=== PATIENT | female | born 1990 | race Caucasian/White ===

== ENCOUNTER 2017-09-30 20:53 | Emergency (ER) | payer BC ==
[2017-09-30 22:14] VITALS: BP 110/63
--- NOTE | 2017-10-01 00:30 | EDM.PDOC ---
ED HPI GENERAL MEDICAL PROBLEM - General Chief Complaint: Abdominal Pain Stated Complaint: 6 WEEKS PREG AND ABD PAIN [id number] Time Seen by Provider: 09/30/17 23:00 Source of Information: Reports: Patient History Limitations: Reports: No Limitations - History of Present Illness INITIAL COMMENTS - FREE TEXT/NARRATIVE: c/o RLQ pain today. No urinary complaints, previous appendectomy. Estimates 6 weeks pg with LMP 08/20. No fever, chills or nausea. No cramping sensation , no spotting. 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 ED EXAM, RENAL/ - Physical Exam Exam: See Below Exam Limited By: No Limitations General Appearance: Alert, Anxious, Mild Distress Eye Exam: Bilateral Eye: EOMI Ears: Normal External Exam Nose: Normal Inspection Throat/Mouth: Normal Inspection Head: Atraumatic, Normocephalic Neck: Normal Inspection, Supple, Non-Tender Respiratory/Chest: No Respiratory Distress, Lungs Clear Cardiovascular: Normal Peripheral Pulses, Regular Rate, Rhythm GI/Abdominal: Normal Bowel Sounds, Soft, Tender (RLQ) Back Exam: Normal Inspection Extremities: Normal Inspection, Normal Range of Motion Neurological: Alert, Oriented Psychiatric: Normal Affect Course - Vital Signs Last Recorded V/S: Last Vital Signs Temp 98.6 F 09/30/17 22:13 Pulse 92 12/12/17 22:13 Resp 16 09/30/17 22:13 BP 110/63 09/30/17 22:13 Pulse Ox 100 09/30/17 22:13 - Orders/Labs/Meds Labs: Laboratory Tests 09/30/17 09/30/17 09/30/17 Range/Units 22:18 22:18 22:30 WBC 7.4 (5.0-10.0) 10^3/uL RBC 3.79 L (4.2-5.4) 10^6/uL Hgb 11.3 L D (12.0-16.0) g/dL Hct 34.7 L (37.0-47.0) % MCV 91.6 D (80-100) fL MCH 29.8 (27.0-34.0) pg MCHC 32.6 L (33.0-35.0) g/dL Plt Count 256 (150-450) 10^3/uL Neut % (Auto) 46.0 (42.2-75.2) % Lymph % (Auto) 40.6 (20.5-50.1) % [place] % (Auto) 12.6 H (2-8) % Eos % (Auto) 0.4 L (1.0-3.0) % Baso % (Auto) 0.4 (0.0-1.0) % HCG, Quant > 1371 H (0-25) mIU/ml Beta HCG, Quant 12879 mIU/ml Urine Color Yellow (YELLOW) Urine Appearance Clear (CLEAR) Urine pH 7.0 (5.0-9.0) Ur Specific [place] 1.025 (1.005-1.030) Urine Protein Negative (NEGATIVE) Urine Glucose (UA) Negative (NEGATIVE) Urine Ketones Negative (NEGATIVE) Urine Occult Blood Negative (NEGATIVE) Urine Nitrite Negative (NEGATIVE) Urine Bilirubin Negative (NEGATIVE) Urine Urobilinogen 1.0 (0.2-1.0) mg/dL Ur Leukocyte Esterase Negative (NEGATIVE) Urine RBC 0-5 /HPF Urine WBC 0-5 (0-5/HPF) /HPF Ur Epithelial Cells Few /HPF Urine Bacteria Few (0-FEW/HPF) /HPF - Radiology Interpretation Free Text/Narrative:: US: intrauterine pg 6 weeks one day Departure - Departure Time of Disposition: 01:02 Disposition: Home, Self-Care 01 Condition: Good Clinical Impression: First trimester , Right lower quadrant abdominal pain - Discharge Information Instructions: First Trimester of , [id number] Referrals: Larry Blum MD [Primary Care Provider] - Forms: ED Department Discharge Additional Instructions: rest increase fluids no intercourse for 24 hours follow up with primary provider tylenol for discomfort
== END 2017-10-01 01:10 | disposition home or self-care (01) ==
LOC: DL.ED 20:53
DX: O99.89 Other specified diseases and conditions complicating pregnancy, childbirth and the puerperium (principal); R10.31 Right lower quadrant pain; Z3A.01 Less than 8 weeks gestation of pregnancy; Z90.49 Acquired absence of other specified parts of digestive tract
CPT/HCPCS: 36415; 76817; 81001; 84702; 85025; 99284

== ENCOUNTER 2019-01-12 22:43 | Emergency (ER) | payer BC ==
--- NOTE | 2019-01-12 23:04 | EDM.PDOC ---
ED HPI GENERAL MEDICAL PROBLEM - General Chief Complaint: Burn Stated Complaint: BURNT HAND Time Seen by Provider: 01/12/19 23:02 Source of Information: Reports: Patient, RN, RN Notes Reviewed History Limitations: Reports: No Limitations - History of Present Illness INITIAL COMMENTS - FREE TEXT/NARRATIVE: Pt presents to the ER with c/o burn to the top of the right hand. She states she was cooking and swiped her hand across the top of the flat top stove. Patient states she has tried aloe vera and linocaine over the counter without help. She states it is very painful. 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: Other Medication(s) Right Middle Finger-Middle Pain Score (Numeric/FACES): 8 - Related Data Allergies Allergy/AdvReac Type Severity Reaction Status Date / Time No Known Allergies Allergy Verified 04/25/18 16:51 Home Meds: Home Meds Acetaminophen [Tylenol Extra Strength] 325 mg PO Q6H PRN 07/12/15 [History] Sertraline HCl 25 mg PO DAILY 01/12/19 [History] busPIRone [Buspar] 15 mg PO DAILY 01/12/19 [History] Past Medical History - Past Health History Medical/Surgical History: Denies Medical/Surgical History HEENT History: Reports: None Cardiovascular History: Reports: Other (See Below) Other Cardiovascular History: preeclampsia Respiratory History: Reports: Asthma Gastrointestinal History: Reports: None Genitourinary History: Reports: None 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: First baby born at 29 weeks gestation due to patient having severe preeclampsia Musculoskeletal History: Reports: None Neurological History: Reports: None Psychiatric History: Reports: Anxiety, Depression Endocrine/Metabolic History: Reports: None Hematologic History: Reports: None Immunologic History: Reports: None Oncologic (Cancer) History: Reports: None Dermatologic History: Reports: None - Infectious Disease History Infectious Disease History: Reports: None - Past Surgical History Head Surgeries/Procedures: Reports: None GI Surgical History: Reports: Appendectomy Social & Family History - Family History Family Medical History: Noncontributory - Caffeine Use Caffeine Use: Reports: Soda ED ROS GENERAL - Review of Systems Review Of Systems: ROS reveals no pertinent complaints other than HPI. ED EXAM, BURN/SMOKE INHALATION - Physical Exam Exam: See Below Exam Limited By: No Limitations General Appearance: Alert, WD/WN, No Apparent Distress Eye Exam: Bilateral Eye: EOMI, Normal Inspection Ears (Abbreviated): Normal External Exam, Hearing Grossly Normal Nose: Left Anterior: Normal Inspection, Left Posterior: Normal Inspection, Right Anterior: Normal Inspection, Right Posterior: Normal Inspection Mouth/Throat: No Symptoms Reported Head: No Symptoms Neck: No Symptoms Respiratory: No Respiratory Distress, Lungs Clear, Normal Breath Sounds, No Accessory Muscle Use, Chest Non-Tender Cardiovascular: Normal Peripheral Pulses, Regular Rate, Rhythm, No Edema, No Gallop, No JVD, No Murmur, No Rub Peripheral Pulses: 2+: Radial (L), Radial (R) GI/Abdominal: Normal Bowel Sounds, Soft, Non-Tender (Female) Exam: Deferred Rectal Exam: Deferred Back Exam: Normal Inspection, Full Range of Motion Extremities: Normal Inspection, Normal Range of Motion, Non-Tender, No Pedal Edema, Normal Capillary Refill Neurological: Alert, Oriented, CN II-XII Intact, Normal Cognition, Normal Gait, Normal Reflexes, No Motor/Sensory Deficits Psychiatric: Normal Affect, Normal Mood Skin Exam: Warm, Dry, Other (erythematous burn to the dorsal aspect of the right hand, above the 4th and 5th fingers, extending down onto the 4th and 5th fingers. Erythematous with white center, no blistering at this time. ) Lymphatic: No Adenopathy Course - Vital Signs Last Recorded V/S: Last Vital Signs Temp 96.6 F 01/12/19 23:06 Pulse 71 01/12/19 23:06 Resp 16 01/12/19 23:06 BP 119/68 01/12/19 23:06 Pulse Ox 99 01/12/19 23:06 - Orders/Labs/Meds Meds: Medications Discontinued Medications Generic Name Dose Route Start Last Admin Trade Name Freq PRN Reason Stop Dose Admin Silver Sulfadiazine 1 gm 01/12/19 23:08 01/12/19 23:20 Silvadene 1% Cream 50 Gm TOP 01/12/19 23:09 1 applic ONETIME ONE Administration - Re-Assessments/Exams Free Text/Narrative Re-Assessment/Exam: 01/12/19 23:40 silvadene applied to the affected area and covered with Telfa and Kerlix by nurse. Departure - Departure Time of Disposition: 23:32 Disposition: Home, Self-Care 01 Condition: Good Clinical Impression: Burn of hand including fingers Qualifiers: Encounter type: initial encounter Laterality: right Burn degree: partial thickness (2nd degree) Qualified Code(s): T23.201A - Burn of second degree of right hand, unspecified site, initial encounter - Discharge Information *PRESCRIPTION DRUG MONITORING PROGRAM REVIEWED*: No *COPY OF PRESCRIPTION DRUG MONITORING REPORT IN PATIENT GWENDOLYN: No Instructions: Burn Care, Adult, [id number], Second-Degree Burn, Adult Forms: ED Department Discharge Additional Instructions: Continue to use Silvadene on the area until scabbing over Wrap and keep covered while open and draining May use Tylenol and/or Ibuprofen as directed for pain
[2019-01-12 23:08] VITALS: BP 119/68
[2019-01-12] MEDS ORDERED: Silver Sulfadiazine 1% Crm 50 GM Tube TOP ONE (23:08)
== END 2019-01-12 23:38 | disposition home or self-care (01) ==
LOC: DL.ED 22:43
DX: T23.231A Burn of second degree of multiple right fingers (nail), not including thumb, initial encounter (principal); T23.202A Burn of second degree of left hand, unspecified site, initial encounter
CPT/HCPCS: 16020; 99283; A9270

== ENCOUNTER 2021-09-13 02:44 | Emergency (ER) | payer BC, OTHER ==
[2021-09-13] MEDS ORDERED: Benzonatate 100 MG Cap PO ONE (03:00)
[2021-09-13] MEDS ORDERED: predniSONE 20 MG Tab PO ONE (03:00)
[2021-09-13 03:04] VITALS: BP 153/80; PULSE 95
--- NOTE | 2021-09-13 03:10 | EDM.PDOC ---
ED HPI GENERAL MEDICAL PROBLEM - General Chief Complaint: Respiratory Problem Stated Complaint: FEELS LIKE THROAT IS CLOSING Time Seen by Provider: 09/13/21 03:05 Source of Information: Reports: Patient, RN History Limitations: Reports: No Limitations - History of Present Illness INITIAL COMMENTS - FREE TEXT/NARRATIVE: ED with c/o cough, has had past 3 days worse tonight, woke with feeling tightness in chest. No hx asthma. COVID in June. Throat sore. , sinus drainage. Chills no fever. - Related Data Allergies Allergy/AdvReac Type Severity Reaction Status Date / Time No Known Allergies Allergy Verified 04/27/20 14:54 Home Meds: Home Meds Acetaminophen [Tylenol Extra Strength] 2 tab PO Q6H PRN 07/12/15 [History] Sertraline HCl 25 mg PO BEDTIME 01/12/19 [History] busPIRone [Buspar] 15 mg PO BEDTIME 01/12/19 [History] Naproxen [Naprosyn] 500 mg PO Q12HR #20 tab 04/27/20 [Rx] Past Medical History - Past Health History Medical/Surgical History: Denies Medical/Surgical History HEENT History: Reports: None Cardiovascular History: Reports: Other (See Below) Other Cardiovascular History: HTN only with , h/o increased cholesterol Respiratory History: Reports: Asthma Other Respiratory History: asthma in the past Gastrointestinal History: Reports: Cholelithiasis Genitourinary History: Reports: None 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: Musculoskeletal History: Reports: Fracture Other Musculoskeletal History: hx fx foot as a child Neurological History: Reports: None Psychiatric History: Reports: Anxiety, Depression Endocrine/Metabolic History: Reports: None Hematologic History: Reports: None Immunologic History: Reports: None Oncologic (Cancer) History: Reports: None Dermatologic History: Reports: None - Infectious Disease History Infectious Disease History: Reports: Chicken Pox - Past Surgical History Head Surgeries/Procedures: Reports: None HEENT Surgical History: Reports: None Cardiovascular Surgical History: Reports: None Respiratory Surgical History: Reports: None GI Surgical History: Reports: Appendectomy, Cholecystectomy, Hernia, Abdominal Female Surgical History: Reports: Section, Tubal Ligation Endocrine Surgical History: Reports: None Neurological Surgical History: Reports: None Musculoskeletal Surgical History: Reports: None Oncologic Surgical History: Reports: None Dermatological Surgical History: Reports: None Social & Family History - Family History Family Medical History: No Pertinent Family History - Caffeine Use Caffeine Use: Reports: Soda ED ROS GENERAL - Review of Systems Review Of Systems: Comprehensive ROS is negative, except as noted in HPI. ED EXAM, GENERAL - Physical Exam Exam: See Below Exam Limited By: No Limitations General Appearance: Alert, Mild Distress Eye Exam: Bilateral Eye: EOMI Ears: Normal External Exam, Hearing Grossly Normal Nose: Normal Inspection Throat/Mouth: Normal Inspection Head: Atraumatic, Normocephalic Respiratory/Chest: No Respiratory Distress, Lungs Clear, Normal Breath Sounds, Other (frequent dry cough) Cardiovascular: Normal Peripheral Pulses, Regular Rate, Rhythm GI/Abdominal: Normal Bowel Sounds, Soft Extremities: Normal Inspection, Normal Range of Motion Neurological: Alert, Oriented, Normal Cognition Psychiatric: Normal Affect, Normal Mood Skin Exam: Warm, Dry, Intact, Normal Color Course - Vital Signs Last Recorded V/S: Last Vital Signs Temp 97.9 F 09/13/21 03:01 Pulse 95 09/13/21 03:01 Resp 20 09/13/21 03:01 BP 153/80 H 09/13/21 03:01 Pulse Ox 97 09/13/21 03:01 - Orders/Labs/Meds Orders: Active Orders 24 hr Category Date Time Status CULTURE STREP A CONFIRMATION [] Stat Lab 09/13/21 02:55 Results STREP SCRN A RAPID W CULT CONF [] Stat Lab 09/13/21 02:55 Results Labs: Laboratory Tests 09/13/21 09/13/21 09/13/21 Range/Units 02:55 03:00 03:00 WBC 7.8 (5.0-10.0) 10^3/uL RBC 3.84 L (4.2-5.4) 10^6/uL Hgb 11.8 L (12.0-16.0) g/dL Hct 35.8 L (37.0-47.0) % MCV 93.2 (80-100) fL MCH 30.7 (27.0-34.0) pg MCHC 33.0 (33.0-35.0) g/dL Plt Count 275 (150-450) 10^3/uL Neut % (Auto) 45.4 (42.2-75.2) % Lymph % (Auto) 38.4 (20.5-50.1) % [place] % (Auto) 14.9 H (2-8) % Eos % (Auto) 0.9 L (1.0-3.0) % Baso % (Auto) 0.4 (0.0-1.0) % PT 9.6 (9.0-12.0) SEC INR 1.0 (0.9-1.2) D-Dimer, Quantitative 206 (0-400) ng/mL Sodium (136-145) mmol/L Potassium (3.5-5.1) mmol/L Chloride (98-107) mmol/L Carbon Dioxide (21-32) mmol/L Anion Gap (7-13) mEq/L BUN (7-18) mg/dL Creatinine (0.55-1.02) mg/dL Est Cr Clr Drug Dosing mL/min Estimated GFR (MDRD) BUN/Creatinine Ratio (No establ ref range) Glucose (70-99) mg/dL Calcium (8.5-10.1) mg/dL Total Bilirubin (0.2-1.0) mg/dL AST (15-37) U/L ALT (14-59) U/L Alkaline Phosphatase (46-116) U/L Total Protein (6.4-8.2) g/dL Albumin (3.4-5.0) g/dL Globulin Albumin/Globulin Ratio SARS-CoV-2 RNA (RUBEN) Negative (NEGATIVE) 09/13/21 Range/Units 03:00 WBC (5.0-10.0) 10^3/uL RBC (4.2-5.4) 10^6/uL Hgb (12.0-16.0) g/dL Hct (37.0-47.0) % MCV (80-100) fL MCH (27.0-34.0) pg MCHC (33.0-35.0) g/dL Plt Count (150-450) 10^3/uL Neut % (Auto) (42.2-75.2) % Lymph % (Auto) (20.5-50.1) % [place] % (Auto) (2-8) % Eos % (Auto) (1.0-3.0) % Baso % (Auto) (0.0-1.0) % PT (9.0-12.0) SEC INR (0.9-1.2) D-Dimer, Quantitative (0-400) ng/mL Sodium 142 (136-145) mmol/L Potassium 3.6 (3.5-5.1) mmol/L Chloride 106 (98-107) mmol/L Carbon Dioxide 31 (21-32) mmol/L Anion Gap 8.6 (7-13) mEq/L BUN 18 (7-18) mg/dL Creatinine 0.77 (0.55-1.02) mg/dL Est Cr Clr Drug Dosing 100.01 mL/min Estimated GFR (MDRD) > 60 BUN/Creatinine Ratio 23.4 (No establ ref range) Glucose 102 H (70-99) mg/dL Calcium 9.0 (8.5-10.1) mg/dL Total Bilirubin 0.5 (0.2-1.0) mg/dL AST 69 H (15-37) U/L ALT 159 H (14-59) U/L Alkaline Phosphatase 175 H (46-116) U/L Total Protein 7.7 (6.4-8.2) g/dL Albumin 3.4 (3.4-5.0) g/dL Globulin 4.3 Albumin/Globulin Ratio 0.8 SARS-CoV-2 RNA (RUBEN) (NEGATIVE) Meds: Medications Discontinued Medications Generic Name Dose Route Start Last Admin Trade Name Freq PRN Reason Stop Dose Admin Benzonatate 200 mg 09/13/21 03:00 09/13/21 03:08 Benzonatate 100 Mg Cap PO 09/13/21 03:01 200 mg ONETIME ONE Administration Prednisone 40 mg 09/13/21 03:00 09/13/21 03:07 Prednisone 20 Mg Tab PO 09/13/21 03:01 40 mg ONETIME ONE Administration Departure - Departure Time of Disposition: 04:09 Disposition: Home, Self-Care 01 Condition: Good Clinical Impression: URI, acute, Cough - Discharge Information *PRESCRIPTION DRUG MONITORING PROGRAM REVIEWED*: No *COPY OF PRESCRIPTION DRUG MONITORING REPORT IN PATIENT GWENDOLYN: No Instructions: Viral Respiratory Infection, [id number] Forms: ED Department Discharge Additional Instructions: increase fluids tessalon 200mg every 8 hours as needed for cough prednisone clinic follow up taper Friday if not improving humidification albuterol inhaler 2 puffs every 4 hours as needed Sepsis Event Note (ED) - Evaluation Sepsis Screening Result: No Definite Risk - Focused Exam Vital Signs: Vital Signs Temp Pulse Resp BP Pulse Ox 09/13/21 03:01 97.9 F 95 20 153/80 H 97 - My Orders Last 24 Hours: My Active Orders 09/13/21 02:55 CULTURE STREP A CONFIRMATION [RM] Stat STREP SCRN A RAPID W CULT CONF [RM] Stat - Assessment/Plan Last 24 Hours: My Active Orders 09/13/21 02:55 CULTURE STREP A CONFIRMATION [] Stat STREP SCRN A RAPID W CULT CONF [] Stat
[2021-09-13 03:37] LABS: ANION GAP 8.6 mEq/L (7-13); CHLORIDE,CL 106 mmol/L (98-107); SODIUM,NA 142 mmol/L (136-145)
[2021-09-13] MEDS ORDERED: predniSONE 20 MG Tab ONE (04:22)
[2021-09-13] MEDS ORDERED: Benzonatate 100 MG Cap ONE (04:22)
[2021-09-13] MEDS ORDERED: Albuterol 6.7 GM Inhaler INH ONE (04:22)
== END 2021-09-13 04:39 | disposition home or self-care (01) ==
LOC: DL.ED 02:44
DX: J06.9 Acute upper respiratory infection, unspecified (principal); I10 Essential (primary) hypertension; Z20.822 Contact with and (suspected) exposure to COVID-19
CPT/HCPCS: 36415; 80053; 85025; 85379; 85610; 87081; 87430; 87635; 99283; A9270; J7512; U0002

== ENCOUNTER 2025-03-12 22:58 | Emergency (ER) | payer BC, OTHER ==
[2025-03-12 23:24] VITALS: BP 117/87; PULSE 99
[2025-03-12 23:43] LABS: APPEARANCE,URINE CLEAR (CLEAR); BILIRUBIN,URINE NEGATIVE (NEGATIVE); COLOR,URINE YELLOW (YELLOW); GLUCOSE,URINE NEGATIVE (NEGATIVE); KETONES,URINE 40 (NEGATIVE); LEUKOCYTE ESTERASE,URINE NEGATIVE (NEGATIVE); NITRITE,URINE NEGATIVE (NEGATIVE); OCCULT BLOOD,URINE TRACE-INTACT (NEGATIVE); PROTEIN,URINE NEGATIVE (NEGATIVE); UROBILINOGEN,URINE 0.2 mg/dL (0.2-1.0)
[2025-03-12 23:58] LABS: BASOPHILS PERCENT AUTO 0.4 % (0.0-1.0); EOSINOPHILS PERCENT AUTO 0.3 % (1.0-3.0); HEMATOCRIT 33.4 % (37.0-47.0); HEMOGLOBIN 10.8 g/dL (12.0-16.0); LYMPHOCYTES PERCENT AUTO 19.5 % (20.5-50.1); MEAN CORPUSCULAR HEMOGLOBIN 29.4 pg (27.0-34.0); MEAN CORPUSCULAR HGB CONC 32.3 g/dL (33.0-35.0); MONOCYTES PERCENT AUTO 10.9 % (2-8); NEUTROPHILS PERCENT AUTO 68.9 % (42.2-75.2); PLATELET COUNT,PLT 272 10^3/uL (150-450); RED BLOOD CELL COUNT 3.67 10^6/uL (4.2-5.4)
[2025-03-13 00:17] LABS: BACTERIA,URINE FEW /HPF (0-FEW/HPF); EPITHELIAL CELLS,URINE FEW /HPF (NOT SEEN); RBC,URINE 0-5 /HPF (0-5); WBC,URINE 0-5 /HPF (0-5/HPF)
[2025-03-13 00:18] LABS: MUCUS,URINE FEW /LPF (NOT SEEN)
[2025-03-13 00:33] LABS: A/G RATIO 0.9; ALANINE AMINOTRANSFERASE,ALT 58 U/L (14-59); ALBUMIN 3.4 g/dL (3.4-5.0); ALKALINE PHOSPHATASE 105 U/L (46-116); ANION GAP 13.4 mEq/L (7-13); ASPARTATE AMNIOTRANSFERASE,AST 20 U/L (15-37); BILIRUBIN TOTAL 1.3 mg/dL (0.2-1.0); BLOOD UREA NITROGEN,BUN 10 mg/dL (7-18); BUN/CREATININE RATIO 16.9 (No establ ref range); CALCIUM 9.1 mg/dL (8.5-10.1); CARBON DIOXIDE,CO2 26 mmol/L (21-32); CHLORIDE,CL 105 mmol/L (98-107); CREATININE 0.59 mg/dL (0.55-1.02); ESTIMATED GFR 122 mL/min (>=60); GLUCOSE RANDOM 104 mg/dL (70-99); POTASSIUM,K 3.4 mmol/L (3.5-5.1); PROTEIN TOTAL,TP 7.1 g/dL (6.4-8.2); SODIUM,NA 141 mmol/L (136-145)
== END 2025-03-13 02:36 | disposition home or self-care (01) ==
LOC: DL.ED 22:58
DX: R00.0 Tachycardia, unspecified (principal); I95.1 Orthostatic hypotension; F41.9 Anxiety disorder, unspecified; E87.6 Hypokalemia; Z88.8 Allergy status to other drugs, medicaments and biological substances; Z79.899 Other long term (current) drug therapy; Z90.49 Acquired absence of other specified parts of digestive tract
CPT/HCPCS: 36415; 80053; 81001; 81025; 84484; 85025; 93005; 93010; 99284; 99285